=== PATIENT | male | born 1940 | race Caucasian/White ===

== ENCOUNTER 2020-04-15 08:46 | Outpatient (CLI) | payer MEDICARE, SELFPAY ==
[2020-04-15 09:33] LABS: Hemoglobin A1C 5.5 % (<5.7)
[2020-04-15 09:36] LABS: Albumin Level 4.3 g/dL (3.5-5.1); Alkaline Phosphatase 94 U/L (38-126); Anion Gap 9 mmol/L (8-16); Aspartate Amino Transferase 31 U/L (17-59); Bilirubin,Total 0.5 mg/dL (0.2-1.3); Blood Urea Nitrogen 26 mg/dL (9-20); Calcium 9.6 mg/dL (8.4-10.2); Carbon Dioxide 33 mmol/L (22-30); Chloride 103 mmol/L (98-107); Estimated Glomerular Filt Rate 49; Glucose 131 mg/dL (75-110); Potassium 4.2 mmol/L (3.4-5.0); Sodium 145 mmol/L (137-145)
[2020-04-15 09:39] LABS: Alanine Aminotransferase < 6 U/L (4-50)
== END 2020-04-15 08:47 | disposition home or self-care (01) ==
PROVIDERS: PCP Family Medicine; Visit Provider Family Medicine
DX: E11.9 Type 2 diabetes mellitus without complications (principal)
CPT/HCPCS: 36415; 80053; 83036

== ENCOUNTER 2020-05-17 11:21 | Outpatient (CLI) | payer MEDICARE, SELFPAY ==
[2020-05-17 12:10] LABS: Hematocrit 43.5 % (42.0-52.0); Hemoglobin 14.5 g/dL (14.0-18.0); Mean Corpuscular HGB Conc 33.3 g/dl (32-36); Mean Corpuscular Hemoglobin 32.2 pg (26-34); Mean Corpuscular Volume 96.7 fl (80-100); Mean Platelet Volume 9.8 fl (7.4-10.4); Platelet Count Result 172 k/mm3 (150-375); Red Cell Distribution Width 12.2 % (11.5-14.5); White Blood Count 9.5 K/mm3 (4.5-10.0)
[2020-05-17 12:16] LABS: Add Urine Microscopic? YES; Appearance Urine Clear (Clear); Bilirubin Urine Negative (Negative); Blood Urine Negative (Negative); Color Urine Yellow (Yellow); Glucose Urine UA Negative (Negative); Ketones Urine Negative (Negative); Leukocyte Esterase Ur Negative LEU/UL (NEGATIVE); Mucus Urine Rare /lpf; Nitrate Urine Negative (Negative); Protein Urine 1+ mg/dL (Negative); RBC Urine 0-2 /hpf (0-2); Specific Grav Ur 1.021 (1.001-1.035); Squamous Epithelial Cell Urine Rare /hpf (Few); Urobilinogen Urine Negative mg/dL (<2.0); WBC Urine 0-3 /hpf (0-3)
[2020-05-17 12:27] LABS: Alanine Aminotransferase 18 U/L (4-50); Albumin Level 4.2 g/dL (3.5-5.1); Alkaline Phosphatase 96 U/L (38-126); Anion Gap 6 mmol/L (8-16); Aspartate Amino Transferase 29 U/L (17-59); Bilirubin,Total 0.6 mg/dL (0.2-1.3); Blood Urea Nitrogen 28 mg/dL (9-20); Calcium 9.3 mg/dL (8.4-10.2); Carbon Dioxide 35 mmol/L (22-30); Chloride 101 mmol/L (98-107); Cholesterol 135 mg/dL (0-200); Estimated Glomerular Filt Rate 49; Glucose 122 mg/dL (75-110); HDL Direct 35 mg/dL; Potassium 3.7 mmol/L (3.4-5.0); Sodium 142 mmol/L (137-145); Triglycerides 182 mg/dL (<150)
[2020-05-17 12:32] LABS: Hemoglobin A1C 5.5 % (<5.7)
[2020-05-17 12:38] LABS: LDL Cholesterol Direct 60 mg/dL
[2020-05-17 12:51] LABS: Creatinine Urine 170.4 mg/dL
[2020-05-17 12:55] LABS: MALB Creatinine Ratio 6.7 mg/g (0-30); Microalbumin Urine Random 11.4 mg/L (0-16.7)
[2020-05-17 12:57] LABS: Thyroid Stimulating Hormone 0.739 uIU/mL (0.465-4.680)
== END 2020-05-17 11:22 | disposition home or self-care (01) ==
PROVIDERS: PCP Family Medicine; Visit Provider Family Medicine
DX: E78.5 Hyperlipidemia, unspecified (principal); E11.9 Type 2 diabetes mellitus without complications; I10 Essential (primary) hypertension; R53.83 Other fatigue
CPT/HCPCS: 36415; 80053; 80061; 81001; 82043; 83036; 84443; 85027

== ENCOUNTER 2020-10-29 11:00 | Outpatient (CLI) | payer MEDICARE, SELFPAY ==
[2020-10-29 11:47] LABS: Hemoglobin A1C 5.8 % (<5.7)
[2020-10-29 11:52] LABS: Albumin Level 4.3 g/dL (3.5-5.1); Alkaline Phosphatase 95 U/L (38-126); Anion Gap 9 mmol/L (8-16); Aspartate Amino Transferase 28 U/L (17-59); Bilirubin,Total 0.6 mg/dL (0.2-1.3); Blood Urea Nitrogen 25 mg/dL (9-20); Calcium 9.8 mg/dL (8.4-10.2); Carbon Dioxide 33 mmol/L (22-30); Chloride 101 mmol/L (98-107); Estimated Glomerular Filt Rate 49; Glucose 116 mg/dL (75-110); Potassium 4.1 mmol/L (3.4-5.0); Sodium 143 mmol/L (137-145)
[2020-10-29 13:31] LABS: Alanine Aminotransferase < 4 U/L (4-50)
== END 2020-10-29 11:01 | disposition home or self-care (01) ==
LOC: ANHLAB 11:03
PROVIDERS: PCP Family Medicine; Visit Provider Family Medicine
DX: E11.9 Type 2 diabetes mellitus without complications (principal)
CPT/HCPCS: 36415; 80053; 83036

== ENCOUNTER 2021-05-16 11:17 | Outpatient (CLI) | payer MEDICARE, SELFPAY ==
[2021-05-16 11:47] LABS: Hematocrit 41.3 % (42.0-52.0); Hemoglobin 13.4 g/dL (14.0-18.0); Mean Corpuscular HGB Conc 32.4 g/dl (32-36); Mean Corpuscular Hemoglobin 32.4 pg (26-34); Mean Corpuscular Volume 99.8 fl (80-100); Platelet Count Result 179 k/mm3 (150-375); Red Blood Count 4.14 M/mm3 (4.6-6.20); Red Cell Distribution Width 12.5 % (11.5-14.5); White Blood Count 9.8 K/mm3 (4.5-10.0)
[2021-05-16 11:55] LABS: Creatinine Urine 138.6 mg/dL
[2021-05-16 11:56] LABS: Add Urine Microscopic? YES; Appearance Urine Clear (Clear); Bilirubin Urine Negative (Negative); Blood Urine Negative (Negative); Color Urine Yellow (Yellow); Glucose Urine UA Negative (Negative); Ketones Urine Trace mg/dL (Negative); Leukocyte Esterase Ur Negative LEU/UL (NEGATIVE); Mucus Urine Rare /lpf; Nitrate Urine Negative (Negative); Protein Urine Negative (Negative); RBC Urine 0-2 /hpf (0-2); Specific Grav Ur 1.018 (1.001-1.035); Urobilinogen Urine Negative mg/dL (<2.0); WBC Urine 0-3 /hpf (0-3)
[2021-05-16 11:57] LABS: Hemoglobin A1C 5.8 % (<5.7)
[2021-05-16 11:59] LABS: Alanine Aminotransferase 12 U/L (4-50); Albumin Level 4.4 g/dL (3.5-5.1); Alkaline Phosphatase 109 U/L (38-126); Anion Gap 6 mmol/L (8-16); Aspartate Amino Transferase 29 U/L (17-59); Bilirubin,Total 0.6 mg/dL (0.2-1.3); Blood Urea Nitrogen 19 mg/dL (9-20); Calcium 9.3 mg/dL (8.4-10.2); Carbon Dioxide 31 mmol/L (22-30); Chloride 101 mmol/L (98-107); Cholesterol 153 mg/dL (0-200); Estimated Glomerular Filt Rate 53; Glucose 121 mg/dL (65-110); HDL Direct 39 mg/dL; Potassium 4.1 mmol/L (3.4-5.0); Sodium 138 mmol/L (137-145); Triglycerides 189 mg/dL (<150)
[2021-05-16 12:00] LABS: MALB Creatinine Ratio 6.8 mg/g (0-30); Microalbumin Urine Random 9.4 mg/L (0-16.7)
[2021-05-16 12:10] LABS: LDL Cholesterol Direct 75 mg/dL
[2021-05-16 12:29] LABS: Thyroid Stimulating Hormone 0.933 uIU/mL (0.465-4.680)
== END 2021-05-16 11:18 | disposition home or self-care (01) ==
PROVIDERS: PCP Family Medicine; Visit Provider Family Medicine
DX: E78.5 Hyperlipidemia, unspecified (principal); I10 Essential (primary) hypertension; E11.9 Type 2 diabetes mellitus without complications
CPT/HCPCS: 36415; 80053; 80061; 81001; 82043; 83036; 84443; 85027

== ENCOUNTER 2021-11-21 11:01 | Outpatient (CLI) | payer MEDICARE, SELFPAY ==
[2021-11-21 12:14] LABS: Alanine Aminotransferase 7 U/L (6-50); Albumin Level 4.2 g/dL (3.5-5.1); Alkaline Phosphatase 103 U/L (38-126); Anion Gap 9 mmol/L (8-16); Aspartate Amino Transferase 26 U/L (17-59); Bilirubin,Total 0.7 mg/dL (0.2-1.3); Blood Urea Nitrogen 20 mg/dL (9-20); Calcium 8.9 mg/dL (8.4-10.2); Carbon Dioxide 30 mmol/L (22-30); Chloride 103 mmol/L (98-107); Estimated Glomerular Filt Rate 53; Glucose 109 mg/dL (65-110); Potassium 3.9 mmol/L (3.4-5.0); Sodium 142 mmol/L (137-145)
[2021-11-21 12:24] LABS: Hemoglobin A1C 5.7 % (<5.7)
== END 2021-11-21 11:02 | disposition home or self-care (01) ==
LOC: ANHLAB 11:05
PROVIDERS: PCP Family Medicine; Visit Provider Family Medicine
DX: E11.9 Type 2 diabetes mellitus without complications (principal)
CPT/HCPCS: 36415; 80053; 83036

== ENCOUNTER 2022-05-16 09:36 | Outpatient (CLI) | payer MEDICARE, SELFPAY ==
[2022-05-16 10:05] LABS: Hemoglobin 13.1 g/dL (14.0-18.0); Mean Corpuscular Hemoglobin 31.3 pg (26-34); Mean Corpuscular Volume 98.1 fl (80-100); Mean Platelet Volume 10.2 fl (7.4-10.4); Platelet Count Result 204 k/mm3 (150-375); Red Blood Count 4.18 M/mm3 (4.6-6.20); Red Cell Distribution Width 12.5 % (11.5-14.5)
[2022-05-16 10:17] LABS: Add Urine Microscopic? NO; Appearance Urine Clear (Clear); Bilirubin Urine Negative (Negative); Blood Urine Negative (Negative); Color Urine Light Yellow (Yellow); Glucose Urine UA Negative (Negative); Ketones Urine Negative (Negative); Leukocyte Esterase Ur Negative LEU/UL (NEGATIVE); Nitrate Urine Negative (Negative); Protein Urine Negative (Negative); Specific Grav Ur 1.015 (1.001-1.035); Urobilinogen Urine 0.2 mg/dL (<2.0)
[2022-05-16 10:19] LABS: Alanine Aminotransferase 8 U/L (6-50); Albumin Level 4.5 g/dL (3.5-5.1); Alkaline Phosphatase 96 U/L (38-126); Anion Gap 6 mmol/L (8-16); Aspartate Amino Transferase 28 U/L (17-59); Bilirubin,Total 0.6 mg/dL (0.2-1.3); Blood Urea Nitrogen 22 mg/dL (9-20); Calcium 9.1 mg/dL (8.4-10.2); Carbon Dioxide 33 mmol/L (22-30); Chloride 101 mmol/L (98-107); Cholesterol 143 mg/dL (0-200); Estimated Glomerular Filt Rate 45; Glucose 113 mg/dL (65-110); HDL Direct 35 mg/dL; Potassium 3.7 mmol/L (3.4-5.0); Sodium 140 mmol/L (137-145); Triglycerides 190 mg/dL (<150)
[2022-05-16 10:29] LABS: LDL Cholesterol Direct 63 mg/dL
[2022-05-16 10:39] LABS: Creatinine Urine 132.2 mg/dL; Hemoglobin A1C 5.9 % (<5.7)
[2022-05-16 10:43] LABS: MALB Creatinine Ratio 13.1 mg/g (0-30); Microalbumin Urine Random 17.3 mg/L (0-16.7)
== END 2022-05-16 09:37 | disposition home or self-care (01) ==
PROVIDERS: PCP Family Medicine; Visit Provider Family Medicine
DX: E11.9 Type 2 diabetes mellitus without complications (principal); E78.5 Hyperlipidemia, unspecified; I10 Essential (primary) hypertension
CPT/HCPCS: 36415; 80053; 80061; 81003; 82043; 83036; 84443; 85027

== ENCOUNTER 2022-12-04 09:39 | Outpatient (CLI) | payer MEDICARE, SELFPAY ==
[2022-12-04 10:08] LABS: Basophils Absolute Auto 0.1 K/mm3 (0.0-0.1); Basophils Percent Auto 0.6 % (0.2-1.2); Eosinophils Absolute Auto 0.2 K/mm3 (0-0.3); Eosinophils Percent Auto 2.5 % (0-4.4); Hematocrit 37.8 % (42.0-52.0); Hemoglobin 12.2 g/dL (14.0-18.0); Immature Granulocyte Absolute 0.04 K/mm3 (0.00-0.031); Immature Granulocyte Percent A 0.4 % (0-0.5); Lymphocytes Absolute Auto 2.26 K/mm3 (0.9-3.2); Mean Corpuscular HGB Conc 32.3 g/dl (32-36); Mean Corpuscular Hemoglobin 32.2 pg (26-34); Mean Corpuscular Volume 99.7 fl (80-100); Mean Platelet Volume 9.7 fl (7.4-10.4); Monocytes Percent Auto 10.9 % (2.6-8.5); Neutrophils Absolute Auto 5.5 K/mm3 (1.3-6.7); Neutrophils Percent Auto 60.6 % (45.5-73.1); Platelet Count Result 190 k/mm3 (150-375); Red Blood Count 3.79 M/mm3 (4.6-6.20); Red Cell Distribution Width 12.2 % (11.5-14.5)
[2022-12-04 10:18] LABS: Alanine Aminotransferase 13 U/L (6-50); Alkaline Phosphatase 91 U/L (38-126); Anion Gap 3 mmol/L (8-16); Aspartate Amino Transferase 32 U/L (17-59); Bilirubin,Total 0.6 mg/dL (0.2-1.3); Blood Urea Nitrogen 31 mg/dL (9-20); Carbon Dioxide 34 mmol/L (22-30); Chloride 101 mmol/L (98-107); Estimated Glomerular Filt Rate 45; Glucose 112 mg/dL (65-110); Potassium 3.7 mmol/L (3.4-5.0); Sodium 138 mmol/L (137-145)
[2022-12-04 10:39] LABS: Hemoglobin A1C 5.8 % (<5.7)
== END 2022-12-04 09:40 | disposition home or self-care (01) ==
PROVIDERS: PCP Family Medicine; Visit Provider Family Medicine
DX: D64.9 Anemia, unspecified (principal); E11.9 Type 2 diabetes mellitus without complications; I10 Essential (primary) hypertension
CPT/HCPCS: 36415; 80053; 83036; 85025

== ENCOUNTER 2023-06-21 12:48 | Outpatient (CLI) | payer MEDICARE, SELFPAY | END 2023-06-21 12:49 | disposition home or self-care (01) | LOC: ANHAUDIO 12:49 | PROVIDERS: PCP Physician Assistant; Visit Provider Physician Assistant | DX: H91.90 Unspecified hearing loss, unspecified ear (principal) | CPT/HCPCS: 99199 ==

== ENCOUNTER 2023-08-02 12:55 | Outpatient (CLI) | payer MEDICARE, SELFPAY | END 2023-08-02 12:56 | disposition home or self-care (01) | LOC: ANHAUDIO 12:55 | PROVIDERS: PCP Physician Assistant; Visit Provider Physician Assistant | DX: H90.3 Sensorineural hearing loss, bilateral (principal) | CPT/HCPCS: 92557; 92567 ==

== ENCOUNTER 2023-09-20 11:00 | Outpatient (RCR) | payer MEDICARE, SELFPAY | END 2023-09-20 23:59 | disposition home or self-care (01) | LOC: ANHAUDIO 11:00 | PROVIDERS: PCP Physician Assistant; Visit Provider Physician Assistant | DX: Z46.1 Encounter for fitting and adjustment of hearing aid (principal) | CPT/HCPCS: 99199; V5261 ==

== ENCOUNTER 2023-10-26 09:41 | Outpatient (CLI) | payer MEDICARE, SELFPAY ==
[2023-10-26 10:33] LABS: Hematocrit 38.7 % (42.0-52.0); Hemoglobin 12.1 g/dL (14.0-18.0); Mean Corpuscular HGB Conc 31.3 g/dl (32-36); Mean Corpuscular Hemoglobin 31.3 pg (26-34); Mean Platelet Volume 10.3 fl (7.4-10.4); Platelet Count Result 178 k/mm3 (150-375); Red Blood Count 3.87 M/mm3 (4.6-6.20); Red Cell Distribution Width 12.6 % (11.5-14.5); White Blood Count 8.2 K/mm3 (4.5-10.0)
[2023-10-26 10:35] LABS: Appearance Urine Clear (Clear); Bilirubin Urine Negative (Negative); Blood Urine Negative (Negative); Color Urine Yellow (Yellow); Glucose Urine UA Negative (Negative); Ketones Urine Negative (Negative); Leukocyte Esterase Ur Negative LEU/UL (Negative); Nitrate Urine Negative (Negative); Protein Urine Negative (Negative); Specific Grav Ur 1.018 (1.001-1.035); Urobilinogen Urine 0.2 mg/dL (<2.0); pH Urine 7.5 (5.0-9.0)
[2023-10-26 10:51] LABS: Add Urine Microscopic? NO
[2023-10-26 10:53] LABS: Albumin Level 4.1 g/dL (3.5-5.1); Alkaline Phosphatase 83 U/L (38-126); Anion Gap 5 mmol/L (4-12); Aspartate Amino Transferase 25 U/L (17-59); Bilirubin,Total 0.7 mg/dL (0.2-1.3); Blood Urea Nitrogen 31 mg/dL (9-20); Calcium 9.1 mg/dL (8.4-10.2); Carbon Dioxide 33 mmol/L (22-30); Chloride 104 mmol/L (98-107); Cholesterol 130 mg/dL (0-200); Estimated Glomerular Filt Rate 41; Glucose 107 mg/dL (65-110); HDL Direct 41 mg/dL; Sodium 142 mmol/L (137-145); Triglycerides 125 mg/dL (<150)
[2023-10-26 11:05] LABS: LDL Cholesterol Direct 75 mg/dL
[2023-10-26 11:12] LABS: Hemoglobin A1C 5.8 % (<5.7)
[2023-10-26 11:15] LABS: Alanine Aminotransferase < 6 U/L (6-50)
[2023-10-26 11:19] LABS: Creatinine Urine 92.1 mg/dL
[2023-10-26 11:23] LABS: Thyroid Stimulating Hormone 0.891 uIU/mL (0.465-4.680)
[2023-10-26 11:24] LABS: Microalbumin Urine Random 10.1 mg/L (0-16.7)
== END 2023-10-26 09:42 | disposition home or self-care (01) ==
PROVIDERS: PCP Family Medicine; Visit Provider Family Medicine
DX: I10 Essential (primary) hypertension (principal); E78.5 Hyperlipidemia, unspecified; E11.9 Type 2 diabetes mellitus without complications
CPT/HCPCS: 36415; 80053; 80061; 81003; 82043; 83036; 84443; 85027

== ENCOUNTER 2024-06-05 09:59 | Outpatient (CLI) | payer MEDICARE, SELFPAY ==
[2024-06-05 11:08] LABS: Basophils Percent Auto 0.5 % (0.2-1.2); Eosinophils Absolute Auto 0.1 K/mm3 (0-0.3); Eosinophils Percent Auto 1.7 % (0-4.4); Hematocrit 38.2 % (42.0-52.0); Hemoglobin 12.1 g/dL (14.0-18.0); Immature Granulocyte Absolute 0.03 K/mm3 (0.00-0.031); Immature Granulocyte Percent A 0.4 % (0-0.5); Lymphocytes Absolute Auto 1.82 K/mm3 (0.9-3.2); Lymphocytes Percent Auto 22.4 % (18.3-44.2); Mean Corpuscular HGB Conc 31.7 g/dl (32-36); Mean Corpuscular Hemoglobin 31.8 pg (26-34); Mean Corpuscular Volume 100.3 fl (80-100); Monocytes Absolute Auto 0.8 K/mm3 (0.1-0.6); Monocytes Percent Auto 10.1 % (2.6-8.5); Neutrophils Absolute Auto 5.3 K/mm3 (1.3-6.7); Neutrophils Percent Auto 64.9 % (45.5-73.1); Platelet Count Result 170 k/mm3 (150-375); Red Blood Count 3.81 M/mm3 (4.6-6.20); White Blood Count 8.1 K/mm3 (4.5-10.0)
[2024-06-05 11:21] LABS: Iron 135 ug/dL (49-181)
[2024-06-05 11:26] LABS: Albumin Level 4.1 g/dL (3.5-5.1); Alkaline Phosphatase 101 U/L (38-126); Anion Gap 4 mmol/L (4-12); Aspartate Amino Transferase 29 U/L (17-59); Bilirubin,Total 0.7 mg/dL (0.2-1.3); Blood Urea Nitrogen 30 mg/dL (9-20); Calcium 9.2 mg/dL (8.4-10.2); Carbon Dioxide 33 mmol/L (22-30); Chloride 103 mmol/L (98-107); Estimated Glomerular Filt Rate 44; Glucose 106 mg/dL (65-110); Potassium 4.1 mmol/L (3.4-5.0); Sodium 140 mmol/L (137-145)
[2024-06-05 11:31] LABS: Alanine Aminotransferase < 6 U/L (6-50)
[2024-06-05 11:32] LABS: Percent Iron Saturation 41 % (20-50)
[2024-06-05 11:39] LABS: Hemoglobin A1C 5.9 % (<5.7)
[2024-06-05 12:35] LABS: Folic Acid > 20.0 ng/mL (2.76->20)
== END 2024-06-05 10:00 | disposition home or self-care (01) ==
LOC: ANHLAB 10:05
PROVIDERS: PCP Physician Assistant; Visit Provider Physician Assistant
DX: E11.9 Type 2 diabetes mellitus without complications (principal); I10 Essential (primary) hypertension; E78.5 Hyperlipidemia, unspecified; D64.9 Anemia, unspecified; H61.23 Impacted cerumen, bilateral
CPT/HCPCS: 36415; 80053; 82607; 82728; 82746; 83036; 83540; 83550; 85025

== ENCOUNTER 2024-08-05 09:39 | Outpatient (CLI) | payer MEDICARE, SELFPAY ==
[2024-08-05 10:05] LABS: Basophils Absolute Auto 0.1 K/mm3 (0.0-0.1); Basophils Percent Auto 0.7 % (0.2-1.2); Eosinophils Absolute Auto 0.2 K/mm3 (0-0.3); Eosinophils Percent Auto 2.2 % (0-4.4); Hematocrit 36.5 % (42.0-52.0); Immature Granulocyte Absolute 0.02 K/mm3 (0.00-0.031); Immature Granulocyte Percent A 0.2 % (0-0.5); Lymphocytes Absolute Auto 2.24 K/mm3 (0.9-3.2); Lymphocytes Percent Auto 26.2 % (18.3-44.2); Mean Corpuscular HGB Conc 32.9 g/dl (32-36); Mean Corpuscular Hemoglobin 32.7 pg (26-34); Mean Corpuscular Volume 99.5 fl (80-100); Mean Platelet Volume 9.9 fl (7.4-10.4); Monocytes Percent Auto 11.6 % (2.6-8.5); Neutrophils Absolute Auto 5.1 K/mm3 (1.3-6.7); Neutrophils Percent Auto 59.1 % (45.5-73.1); Platelet Count Result 173 k/mm3 (150-375); Red Blood Count 3.67 M/mm3 (4.6-6.20); Red Cell Distribution Width 12.3 % (11.5-14.5); White Blood Count 8.6 K/mm3 (4.5-10.0)
[2024-08-05 10:07] LABS: Add Urine Microscopic? NO; Appearance Urine Clear (Clear); Bilirubin Urine Negative (Negative); Blood Urine Negative (Negative); Color Urine Yellow (Yellow); Glucose Urine UA Negative (Negative); Ketones Urine Negative (Negative); Leukocyte Esterase Ur Negative LEU/UL (Negative); Nitrate Urine Negative (Negative); Protein Urine Negative (Negative); Specific Grav Ur 1.018 (1.001-1.035); Urobilinogen Urine 0.2 mg/dL (<2.0); pH Urine 6.5 (5.0-9.0)
[2024-08-05 10:17] LABS: Albumin Level 4.2 g/dL (3.5-5.1); Anion Gap 8 mmol/L (4-12); Blood Urea Nitrogen 38 mg/dL (9-20); Calcium 9.2 mg/dL (8.4-10.2); Carbon Dioxide 30 mmol/L (22-30); Chloride 103 mmol/L (98-107); Estimated Glomerular Filt Rate 44; Glucose 112 mg/dL (65-110); Phosphorus 3.8 mg/dL (2.5-4.5); Potassium 4.1 mmol/L (3.4-5.0); Sodium 141 mmol/L (137-145)
--- OUTSIDE RECORDS SUMMARY | 2024-08-05 10:39 | XMS_ITS | Encounter Summary ---
Author Organization [facility] Address [address] [place] [address] Care Team Providers Care Cleaner Touch Up Worker Name Role Phone Chacorta Bradley MD Primary Care Provider [phone] Elisha Ness Unavailable [phone] Elisha Ness Primary Care Provider + [phone] Encounter Details Date Type Department Care Team (Late st Contact Info) Description 01/15/2018 Abstract [facility] CONVERSION [address] [place] [address] , Caleb Beltre MD Social History Tobacco Use Types Packs/Day Years Used Date Smoking Tobacco: Never Assessed Sex and Gender Information Value Date Recorded Sex Assigned at Not on file Legal Sex Male 7:50 PM CDT Gender Identity Not on file Sexual Orientation Not on file documented as of this encounter Plan of Treatment Not on file documented as of this encounter Visit Diagnoses Not on filedocumented in this encounter Additional Health Concerns Infection Onset Date Last Indicated Resolved Time COVID-19 Rule Out 10/20/2019 10/20/2019 10/21/2019 1:54 PM CDT documented as of this encounter Care Teams Cleaner Touch Up Worker Relationship Specialty Start Date End Date Chacorta Bradley MD [address] [facility] [address] [place] [address] PCP - General FAMILY PRACTICE 04/17/19 08/06/23 Elisha Ness PA [address] [place] [address] PCP - General PHYSICIAN RENTAL CAR FERRY DRIVER 08/07/23 Elisha Ness PA [address] [address] PHYSICIAN RENTAL CAR FERRY DRIVER 08/07/23 08/07/23 documented as of this encounter
--- OUTSIDE RECORDS SUMMARY | 2024-08-05 10:39 | XMS_ITS | Encounter Summary ---
Author Organization [facility] Address [facility] [place] [address] Care Team Providers Care Song Lyricist Name Role Phone Chacorta Bradley MD Primary Care Provider [phone] Elisha Ness Unavailable [phone] Elisha Ness Primary Care Provider + [phone] Encounter Details Date Type Department Care Team (Latest Contact Info) Description 04/02/2018 Abstract [facility] , Caleb Beltre MD Social History Tobacco [...] documented as of this encounter Care Teams Song Lyricist Relationship Specialty Start Date End Date Chacorta Bradley MD [address] [place] [address] PCP - General FAMILY PRACTICE 04/17/19 08/06/23 Elisha Ness PA [address] [place] [address] PCP - General PHYSICIAN WELLFIELD TECHNICIAN 08/07/23 Elisha Ness PA [address] [facility] [address] [facility] [address] [place] [address] PHYSICIAN WELLFIELD TECHNICIAN 08/07/23 08/07/23 documented as of this encounter
--- OUTSIDE RECORDS SUMMARY | 2024-08-05 10:39 | XMS_ITS | Clinical Summary ---
Author Organization [facility] Address [facility] [place] [address] Care Team Providers Care Collateral Clerk Name Role Phone Elisha Ness Primary Care Provider [phone] Allergies No known active allergies Medications amlodipine 2.5 MG tablet Take 2.5 mg by mouth daily. 05/15/2019 Active topiramate 25 MG tablet 75 mg nightly. 06/04/2019 Active metFORMIN 500 MG tablet Take 1,000 mg by mouth daily with breakfast. 02/13/2011 Active Losartan Potassium-HCTZ 100-12.5 MG Tab Take 1 tablet by mouth daily. 02/13/2011 Active influenza vaccine split high-dose (FLUZONE HIGH-DOSE) 0.5 ML injection Inject 0.5 mLs into the muscle. 03/03/2014 Active carbidopa-levod opa 25-100 MG tablet Take 1 tablet by mouth 3 (three) times daily. Active Multiple Vitamins-Minera ls (EYE-VITES OR) Active metoprolol succinate ER 50 MG 24 hr tablet Take 100 mg by mouth daily. Active Multiple Vitamins-Minera ls (MULTIVITAMIN ADULT OR) Active atorvastatin 10 MG tablet Take 10 mg by mouth nightly at bedtime. Active donepezil 10 MG Tab Take 10 mg by mouth nightly at bedtime. 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 05/13/2021 Pain of left great toe 03/03/2014 Essential hypertension 07/08/2013 Macular degeneration of both eyes 04/14/2013 Overview (08/11/2019): Description: dry, age related; stable 03/2013 Gout 03/04/2013 Abdominal pain 05/22/2012 Foot pain 05/07/2012 Callus 04/29/2012 Overview (08/11/2019): Annotation - [id number]: 07-29-2010 progress note, [facility] Diabetic peripheral neuropathy ([facility]) 04/29/2012 Overview (08/11/2019): Annotation - [id number]: 07-29-2010 progress note, [facility] Allergic rhinitis 02/27/2012 Benign familial tremor 02/27/2012 Hyperlipidemia 02/27/2012 Type 2 diabetes mellitus ([facility]) 02/26 Resolved Problems Problem Noted Date Diagnosed Date Resolved Date Encounter for preventive health examination 11/28/2011 02/06/2020 Social History Tobacco Use Types Packs/Day Years Used Date Smoking Tobacco: Never Smokeless Tobacco: Former Alcohol Use Standard Drinks/Week Comments Never 0 (1 standard drink = 0.6 oz pur e alcohol) AUDIT-C Answer Date Recorded Frequency of Alcohol Consumption Never 08/14/2019 Average Number of Drinks Not on file 020 Frequency of Binge Drinking Not on file 07/26 Sex and Gender Information Value Date Recorded Sex Assigned at Not on file Legal Sex Male 7:50 PM CDT Gender Identity Not on file Sexual Orientation Not on file Last Filed Vital Signs Vital Sign Reading Time Taken Comments Blood Pressure 121/75 10/22/2019 11:28 AM CDT Pulse 61 10/22/2019 11:28 AM CDT Temperature 35.8 C (96.5 F) 10/22/2019 11:03 AM CDT Respiratory Rate 16 10/22/2019 11:28 AM CDT Oxygen Saturation 98% 10/22/2019 11:28 AM CDT Inhaled Oxygen Concentration - - Weight 77.1 kg (170 lb) 10/22/2019 9:36 AM CDT Height 175.3 cm (5' 9 ) 10/22/2019 9:36 AM CDT Body Mass Index 25.1 10/22/2019 9:36 AM CDT Plan of Treatment Health Maintenance Due Date Last Done Comments Diabetes: Retinopathy Eye Exam 09/26/1958 Annual Medicare Wellness Visit 09/26/2004 Zoster Vaccines (2 of 3) 04/23/2010 02/26/2010 RSV Immunization or 60+ Years (1 - 1-dose 75+ series) 09/26/2014 Hemoglobin A1C 06/24/2020 12/23/2019, 03/0 08/2019, 03/20/2014, Additional history exists Lipid Panel 07/29/2020 07/30/2019 DTaP, Tdap and Td Vaccines (2 - Td or Tdap) 08/27/2021 08/28/2011 COVID-19 Vaccine ( - season) 2024 Influenza Adult (#1) 2024 02/06/2019, 02/12/2018, 02/13/2017, Additional history exists Kidney Health Evaluation 08/06/2024 08/07/2023 Pneumococcal Vaccine: 65+ Years Completed 12/10/2014, 02/26/2011 Meningococcal B Vaccine Aged Out No l onger eligible based on patient's age to complete this topic Meningococcal Vaccine Aged Out No panfilo shira eligible based on patient's age to complete this topic RSV Immunizations Under 20 Months Aged Out No longer eligible based on patient's age to complete this topic Medical Devices Implanted Type Area Braker Passenger Train Device Identifier Shelf Expiration Date Model / Serial / Lot Knee Procedures Procedure Name Priority Date/Time Associated Diagnosis Comments HEMOGLOBIN, GLYCOSYLATED Routine 12/23/2019 11:04 AM CDT Diabetes mellitus LIPID PANEL Routine 07/30/2019 10:20 AM QUALITY ASSURANCE ADVISOR Diabetes mellitus Mixed hyperlipidemia Benign hypertension Fatigue from Last 3 Months or Most Recently Relevant to Health Maintenance Results * HEMOGLOBIN, GLYCOSYLATED (12/23/2019 11:04 AM CDT) HGB A1C 5.5 <5.7 % 12/23/2019 1:14 PM CDT [facility] Comment: INCREASED RISK OF DIABETES <5.7% NON-DIABETES 5.7-6.4% INCREASED RISK FOR FUTURE DIABETES > OR = 6.5 CONSISTENT WITH DIABETES STANDARDS OF MEDICAL CARE IN DIABETES-2010 DIABETES CARE, 33(SUPP 1): S1-S61,2009 12/23/2019 11:0 4 AM CDT Chacorta Bradley MD LABORATORY Final Result [facility] [address] [place] [address], [place] [phone] * (ABNORMAL) LIPID PANEL (07/30/2019 10:20 AM QUALITY ASSURANCE ADVISOR) CHOLESTEROL 141 <200.0 MG/DL 07/30/2019 11:13 AM [facility] TRIGLYCERIDES 287(H) <150 MG/DL 07/30/2019 11:13 AM [facility] HDL 31(L) >40.0 MG/DL 07/30/2019 11:13 AM [facility] LDL (CALCULATED) 53 <100 MG/DL 07/30/2019 11:13 AM [facility] NON HDL CHOLESTEROL 110 <130 MG/DL 07/30/2019 11:13 AM [facility] CHOL/HDL RATIO 4.5 0.0 - 4.5 07/30/2019 11:13 AM [facility] VLDL CALCULATION 57(H) 5 - 55 MG/DL 07/30/2019 11:13 AM [facility] LIPID INTERPRETATION 07/30/2019 11:13 AM [facility] Comment: NIH CONCENSUS REPORT RECOMMENDATIONS: ADULT CHILD LOW RISK: CHOLESTEROL <200 <170 TRIGLYCERIDE <150 --- HDL >=60 --- LDL <100 <110 BORDERLINE: CHOLESTEROL 200-239 170-199 TRIGLYCERIDE 150-199 --- HDL 40-59 --- LDL 100-159 110-129 HIGH RISK: CHOLESTEROL >=240 >=200 TRIGLYCERIDE >=200 --- HDL <40 --- LDL >=160 >=130 07/30/2019 10:2 0 AM QUALITY ASSURANCE ADVISOR Chacorta Bradley MD LABORATORY Final Result [facility] [address] [place] [address], from Last 3 Months or Most Recently Relevant to [place] [address] [employer] Care Teams Collateral Clerk Relationship Specialty Start Date End Date Elisha Ness PA [address] [facility] [address] [place] [address] PCP - General PHYSICIAN COFOUNDER 08/07/23
--- OUTSIDE RECORDS SUMMARY | 2024-08-05 10:39 | XMS_ITS | Encounter Summary ---
Author Organization [facility] Address [address] [place] [address] Care Team Providers Care Psychiatric Social Worker Supervisor Name Role Phone Chacorta Bradley MD Primary Care Provider [phone] Elisha Ness Unavailable [phone] Elisha Ness Primary Care Provider + [phone] Encounter Details Date Type Department Care Team (Late st Contact Info) Description 11/23/2017 Abstract [facility] CONVERSION [address] [place] [address] , Caleb Beltre MD Social History Tobacco [...] documented as of this encounter Care Teams Psychiatric Social Worker Supervisor Relationship Specialty Start Date End Date Chacorta Bradley MD [address] [facility] [address] [place] [address] PCP - General FAMILY PRACTICE 04/17/19 08/06/23 Elisha Ness PA [address] [place] [address] PCP - General PHYSICIAN FLOW WORKER 08/07/23 Elisha Ness PA [address] [address] PHYSICIAN FLOW WORKER 08/07/23 08/07/23 documented as of this encounter
--- OUTSIDE RECORDS SUMMARY | 2024-08-05 10:39 | XMS_ITS | Clinical Summary ---
Author Organization [facility] Address [address] [place] [address] Phone Care Team Providers Care District Sales Representative Name Role Phone Chacorta Bradley MD Primary Care Provider [phone] Allergies No known active allergies Medications Medication Sig Dispensed Refills Start Date End Date Status topiramate (TOPAMAX) 25 MG tablet Take 25 mg by mouth every night Active aspirin (ST ELMER) 81 MG EC tablet Take 81 mg by mouth 1 (one) time each day Active amLODIPine (NORVASC) 2.5 MG tablet Take 2.5 mg by mouth every night Active losartan-hydroCHLOROth iazide (HYZAAR) 100-12.5 MG per tablet Take 1 tablet by mouth 1 (one) time each day Active metFORMIN (FORTAMET) 500 MG 24 hr tablet Take 1,000 mg by mouth 1 (one) time each day in the morning Active atorvastatin (LIPITOR) 10 MG tablet Take 10 mg by mouth 1 (one) time each day Active Lutein 10 MG tablet Take by mouth 2 (two) times a day UNKNOWN DOSE Active Multiple Vitamin (multivitamin) tablet Take 1 tablet by mouth 1 (one) time each day Active carbidopa-levodopa (SINEMET) 25-100 MG per tablet Take 3 tablets by mouth 3 (three) times a day Active memantine (NAMENDA) 10 MG tablet Take 10 mg by mouth 1 (one) time each day Active metoprolol tartrate (LOPRESSOR) 50 MG tablet Take 100 mg by mouth daily Active Cholecalciferol (Vitamin D) 25 MCG (1000 UT) tablet Take 1,000 Units by mouth daily Active donepezil (ARICEPT) 10 MG tablet Take 10 mg by mouth every night Active Active Problems Problem Noted Date Diagnosed Date Essential (primary) hypertension 09/14/2020 Diabetes mellitus without me ntion of complication, type II or unspecified type, not stated as uncontrolled 09/14/2020 Stage 3a chronic kidney disease 09/08/2020 Resolved Problems Problem Noted Date Diagnosed Date Resolved Date Parkinson's disease 09/14/2020 08/17/19 Social History Tobacco Use Types Packs/Day Years Used Date Smoking Tobacco: Never Smokeless Tobacco: Never Tobacco Cessation:Counseling Given: Not Answered Alcohol Use Standard Drinks/Week Comments Never 0 (1 standard drink = 0.6 oz pur e alcohol) AUDIT-C Answer Date Recorded Q1: How often do you have a drink containing alc ohol? Never 09/08/2020 Average Number of Drinks Not on file 021 Frequency of Binge Drinking Not on file 08/26 Sex and Gender Information Value Date Recorded Sex Assigned at Not on file Gender Identity Not on file Sexual Orientation Not on file Last Filed Vital Signs Vital Sign Reading Time Taken Comments Blood Pressure 126/78 08/14/2023 2:04 PM CDT Pulse 55 08/14/2023 2:04 PM CDT Temperature - - Respiratory Rate - - Oxygen Saturation - - Inhaled Oxygen Concentration - - Weight 70.8 kg (156 lb) 08/14/2023 2:04 PM CDT Height 175.3 cm (5' 9 ) 08/14/2023 2:04 PM CDT Body Mass Index 23.04 08/14/2023 2:04 PM CDT Plan of Treatment Upcoming Encounters Date Type Department Care Team (Late st Contact Info) Description 08/12/2024 1:00 PM CDT Office Visit [facility] [address] [facility] [place], [place] [id number] Smith Kilgore MD [address] [place] [address] Health Maintenance Due Date Last Done Comments Pneumococcal PPSV23/PCV13 65 + Years / High and Highest Risk (1 of 4 - PCV) 09/26/1946 Diabetic Foot Exam 09/26/1949 Ophthalmology Exam 09/26/1949 Influenza Vaccine (#1) 2024 Care Teams District Sales Representative Relationship Specialty Start Date End Date Chacorta Bradley MD [address] [facility] [address] [place] [address] PCP - General Internal Medicine 08/16/21
--- OUTSIDE RECORDS SUMMARY | 2024-08-05 10:39 | XMS_ITS | Encounter Summary ---
Author Organization [facility] Address [address] [place] [address] Care Team Providers Care Candle Maker Name Role Phone Chacorta Bradley MD Primary Care Provider [phone] Elisha Ness Unavailable [phone] Elisha Ness Primary Care Provider [phone] Encounter Details Date Type Department Care Team (Late st Contact Info) Description 10/13/2019 Prep for Procedure [facility] [address] [place], [place] [id number] Declan Ulloa MD [address] [address] Social History Tobacco Use Types Packs/Day Years [...] on file documented as of this encounter Results * PRE-SURGICAL/PRE-PROCEDURE CORONAVIRUS (COVID 19) (10/20/2019 9:56 AM CDT) Pathologist [facility] CORONAVIRUS SARS COV 2 PCR (RESP) NOT DETECTED NOT DETECTED 10/21/2019 1:54 PM CDT [facility] Comment: A Not Detected (negative) test result for this test means that SARS- CoV-2 RNA was not present in the specimen above the limit of detection. A negative result does not rule out the possibility of COVID-19 and should not be used as the sole basis for treatment or patient management decisions. If COVID-19 is still suspected, based on exposure history together with other clinical findings, re-testing should be considered in consultation with public health authorities. Laboratory test results should always be considered in the context of clinical observations and epidemiological data in making a final diagnosis and patient management decisions. Please review the Fact Sheets and FDA authorized labeling available for health care providers and patients using the following websites: [email or web address]/fact- sheet.html [email or web address]/home/Covid-[email or web address]/Patients/ [facility]/fact-sheet.html This test has been authorized by the FDA under an Emergency Use Authorization (EUA) for use by authorized laboratories. Due to the current public health emergency, [facility] is receiving a high volume of samples from a wide variety of swabs and media for COVID-19 testing. In order to serve patients during this public health crisis, samples from appropriate clinical sources are being tested. Negative test results derived from specimens received in non-commercially manufactured viral collection and transport media, or in media and sample collection kits not yet authorized by FDA for COVID-19 testing should be cautiously evaluated and the patient potentially subjected to extra precautions such as additional clinical monitoring, including collection of an additional specimen. Methodology: Nucleic Acid Amplification Test (NAAT) includes PCR or TMA Additional information about COVID-19 can be found at the [facility] website: [email or web address]. [facility] [address] [place] [address] Director: GIORGI GUERRA DO,MPH NASOPHARYNGEAL SWAB / Unknown 10/20/2019 9:56 AM CDT us Declan Ulloa MD MICROBIOLOGY - GENERAL ORDERABLE S Final Result [facility] [address] [place] [address], documented in this encounter Visit Diagnoses Diagnosis Pre-op testing- Primary Preoperative examination, unspecified documented in this encounter Additional Health Concerns Infection Onset Date Last Indicated Resolved Time COVID-19 Rule Out 10/20/2019 10/20/2019 10/21/2019 1:54 PM CDT documented as of this encounter Care Teams Candle Maker Relationship Specialty Start Date End Date Chacorta Bradley MD [address] [place] [address] PCP - General FAMILY PRACTICE 04/17/19 08/06/23 Elisha Ness PA [address] [facility] [address] [place] [address] PCP - General PHYSICIAN GASOLINE ENGINE ASSEMBLER 08/07/23 Elisha Ness PA [address] [facility] [address] [place] [address] PHYSICIAN GASOLINE ENGINE ASSEMBLER 08/07/23 08/07/23 documented as of this encounter
[2024-08-05 10:48] LABS: MALB Creatinine Ratio 10.2 mg/g (0-30); Microalbumin Urine Random 9.8 mg/L (0-16.7)
== END 2024-08-05 09:40 | disposition home or self-care (01) ==
LOC: ANHLAB 09:41
PROVIDERS: PCP Family Medicine; Visit Provider Internal Medicine Nephrology
DX: I12.9 Hypertensive chronic kidney disease with stage 1 through stage 4 chronic kidney disease, or unspecified chronic kidney disease (principal); N18.31 Chronic kidney disease, stage 3a
CPT/HCPCS: 36415; 80069; 81003; 82043; 85025

== ENCOUNTER 2024-11-08 00:37 | Emergency (ER) | payer MEDICARE, SELFPAY ==
[2024-11-08 00:42] VITALS: BP 140/60; PULSE 53; RESP 18; TEMP 36.7; O2SAT 96
[2024-11-08 01:02] VITALS: BP 125/55; PULSE 52; RESP 17; O2SAT 96
--- OUTSIDE RECORDS SUMMARY | 2024-11-08 01:14 | XMS_ITS | Clinical Summary ---
Author Organization [facility] Address [address] [place] [address] Phone Care Team Providers Care Bailing Machine Operator Name Role Phone Chacorta Bradley MD Primary Care Provider [phone] Allergies No known active allergies Medications topiramate (TOPAMAX) 25 MG tablet Take 25 mg by mouth every night Active aspirin (ST ELMER) 81 MG EC tablet Take 81 mg by mouth 1 (one) time each day Active amLODIPine (NORVASC) 2.5 MG tablet Take 2.5 mg by mouth every night Active losartan-hydroC HLOROthiazide (HYZAAR) 100-12.5 MG per tablet Take 1 tablet by mouth 1 (one) time each day Active metFORMIN (FORTAMET) 500 MG 24 hr tablet Take 1,000 mg by mouth 1 (one) time each day in the morning Active atorvastatin (LIPITOR) 10 MG tablet Take 10 mg by mouth 1 (one) time each day Active Multiple Vitamin (multivitamin) tablet Take 1 tablet by mouth 1 (one) time each day Active carbidopa-levod opa (SINEMET) 25-100 MG per tablet Take 3 [...] 10 mg by mouth every night Active Multiple Vitamins-Minera ls (EYE-VITES PO) Take by mouth 2 (two) times a day Active Active Problems Problem Noted Date Diagnosed [...] at Not on file Legal Sex Male 1:15 PM [facility] Gender Identity Not on file Sexual Orientation Not on file Last Filed Vital Signs Vital Sign Reading Time Taken Comments Blood Pressure 127/73 08/12/2024 1:05 PM CDT Pulse 50 08/12/2024 1:05 PM CDT Temperature - - Respiratory Rate - - Oxygen Saturation - - Inhaled Oxygen Concentration - - Weight 72.6 kg (160 lb) 08/12/2024 1:05 PM CDT Height 175.3 cm (5' 9) 08/12/2024 1:05 PM CDT Body Mass Index 23.63 08/12/2024 1:05 PM CDT Plan of Treatment Upcoming Encounters Date Type Department Care Team (Late st Contact Info) Description 08/11/2025 1:00 PM CDT Office Visit [facility] [address] [facility], [address] [place] [address] Smith Kilgore MD [address] [place] [address] Health Maintenance Due Date Last Done Comments Diabetic Foot Exam 09/26/1949 Ophthalmology Exam 09/26/1949 Pneumococcal PPSV23/PCV13 65 + Years / High and Highest Risk (1 of 5 - PCV) 09/26/1958 Influenza Vaccine (Season Ended) 2025 Insurance [facility] PM INTERFACED INSURANCE Care Teams Bailing Machine Operator Relationship Specialty Start Date End Date Chacorta Bradley MD [address] [facility] [address] [place] [address] PCP - General Internal Medicine 08/16/21
[2024-11-08] MEDS: LACTATED RINGERS 1,000 ML 999 ML IV CONT (01:53)
[2024-11-08] MEDS: BISMUTH SUBSALICYLATE 262 MG CHEWABLE TABLET 524 MG PO (01:54)
[2024-11-08] MEDS: LOPERAMIDE HCL 2 MG CAPSULE 4 MG PO (01:54)
[2024-11-08 02:31] VITALS: BP 146/56; PULSE 63; RESP 19
--- NOTE | 2024-11-08 02:43 | ED_ITS ---
HPI - Nausea/Vomiting/Diarrhea General Chief complaint: Nausea/Vomiting/Diarrhea Stated complaint: multiple episodes of diarrhea Time Seen by Provider: 11/08/24 00:41 History of Present Illness HPI Narrative: Around 8:00 p.m. arshad, and government affairs specialist of the patient noticed he was havi ng some loose stools, had a total of about 3 loose stools and they were concerned that he may become dehydrated so brought him in to the hospital. Patient denies any abdominal pain. Related Data Home Medications ?Medication ?Instructions ?Recorded ?Confirmed ?Last Taken ?Type aspirin 81 mg tablet,delayed 81 mg PO DAILY 06/12/19 06/27/24 Unknown History release multivitamin 1 tablet PO DAILY 06/12/19 06/27/24 Unknown History vit C 250 mg-vit E 90 mg-zinc 40 1 tablet PO BID 06/12/19 06/27/24 Unknown History mg-copper 1 hh-nwrrgr-ylumix capsule (PreserVision AREDS-2) carbidopa 25 mg-levodopa 100 mg 3 tablet PO TID 07/30/23 06/27/24 Unknown History tablet cholecalciferol (vitamin D3) 10 1,000 unit PO DAILY 07/30/23 06/27/24 Unknown History mcg (400 unit) capsule donepezil 10 mg tablet 10 mg PO DAILY 07/30/23 06/27/24 Unknown History memantine 10 mg tablet 10 mg PO DAILY 07/30/23 06/27/24 Unknown History topiramate 25 mg tablet 25 mg PO DAILY 07/30/23 06/27/24 Unknown History Allergies Allergy/AdvReac Type Severity Reaction Status Date / Time No Known Allergies Allergy Verified 06/13/24 10:55 Review of Systems Review of Systems: All systems reviewed & are unremarkable except as noted in HPI and below PMFSH Past Medical History Medical History CKD (chronic kidney disease), stage III 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 Dementia HLD (hyperlipidemia) HTN (hypertension), benign Type 2 diabetes mellitus without complications Surgical History Surgical History H/O prostate biopsy H/O cataract removal with insertion of prosthetic lens (~2021) left eye H/O cataract removal with insertion of prosthetic lens (~2017) right eye 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 Family History Family History Mother Parkinson disease Alzheimers disease Social History Social History Social History: Caffeine-none Smoking status: Never smoker Second hand tobacco smoke exposure: No Alcohol intake: never Substance use: never Substance use type: does not use Lack of Transportation: No Lack of Food: Never True Current Housing: I Have Housing Concerned About Future Housing: No Difficulty Paying Gas/Electric Bills: Decline to Answer Difficulty Paying for Meds: No Currently Unemployed: No Education: Master's Degree or Higher Difficulty w/ Childcare or Family Care: No Living arrangements: with family Occupation/Education: retired Gender identity (if verbalized by the patient): Male Agree to blood products: Yes Exam Narrative: EXAMINATION OF ORGAN SYSTEMS/BODY AREAS: Constitutional: Vital signs per nursing GENERAL:[No acute distress, non-toxic appearing.] HEAD: Normal with no signs of head trauma. EYES: EOMI, conjunctiva normal ENT: Hearing grossly intact LUNGS: Nonlabored breathing. HEART: [Regular rate and rhythm] ABD: [Soft], [nontender to palpation] RECTAL: Loose stools; brown EXT: Normal range of motion SKIN: [No rashes or lesions.] NEURO: [Alert and oriented x 3. No gross focal sensory or strength deficits.] PSYCH: Normal affect Course Vital Signs Vital signs: Vital Signs Temperature 98.0 F 11/08/24 00:42 Pulse Rate 53 L 11/08/24 00:42 Respiratory Rate 18 11/08/24 00:42 Blood Pressure 140/60 11/08/24 00:42 Pulse Oximetry 96 11/08/24 00:42 Oxygen Delivery Room Air 11/08/24 00:42 Temperature 98.0 F 11/08/24 00:42 Pulse Rate 53 L 11/08/24 00:42 Respiratory Rate 18 11/08/24 00:42 Blood Pressure 140/60 11/08/24 00:42 Pulse Oximetry 96 11/08/24 00:42 Oxygen Delivery Room Air 11/08/24 00:42 MDM - Nausea/Vomiting/Diarrhea MDM Narrative Medical decision making narrative: Patient presents here after having several episodes of loose stools at home, he is extremely well-appearing, no nausea or vomiting and no abdominal pain, abdomen soft and nontender. There was some loose stool in diaper but it is not dark or bloody Family was concerned about dehydration so I did give a dose of fluids, as well as some Imodium and Pepto-Bismol. On re-evaluation patient still in no distress. Normal vital signs. Family comfortable with taking him home with follow-up to his PCP if he persists in having diarrhea, and prescriptions for anti diarrhea medications provided, as well as instructions to make sure patient stays hydrated. Patient and family agreeable to plan with return precautions Discharge Plan Discharge Clinical Impression: Frequent loose stools Patient Disposition: Home Condition: Stable Instructions: Acute Diarrhea (ED) Additional Instructions: You can take the medications as prescribed, make sure that he is keeping hydrated. If he is still having a large number of loose stools he can follow-up with his primary care doctor. If he starts having nausea, vomiting, abdominal pain, or anything else concerning, you can bring him back to the hospital. Patient Language: Japanese Prescriptions: New loperamide [Imodium A-D] 2 mg capsule 4 mg PO Q6H PRN (Reason: loose stool) Qty: 14 0RF bismuth subsalicylate [Pepto-Bismol] 262 mg tablet,chewable 2 tablet PO Q4-6H PRN (Reason: diarrhea) Qty: 20 0RF Rx Instructions: do not exceed 16 tabs per 24 hrs No Action memantine 10 mg tablet 10 mg PO DAILY multivitamin Tablet 1 tablet PO DAILY PreserVision AREDS-2 [phone] te-gnko-kr-mg capsule 1 tablet PO BID Rx Instructions: administer with meals aspirin 81 mg tablet,delayed release (DR/EC) 81 mg PO DAILY carbidopa-levodopa 25-100 mg tablet 3 tablet PO TID cholecalciferol (vitamin D3) 10 mcg (400 unit) capsule 1,000 unit PO DAILY donepezil 10 mg tablet 10 mg PO DAILY topiramate 25 mg tablet 25 mg PO DAILY losartan-hydrochlorothiazide 100-12.5 mg tablet See Rx Instructions .ROUTE .COMPLEX Qty: 90 2RF Dose Instruction: TAKE 1 TABLET BY MOUTH DAILY Rx Instructions: TAKE 1 TABLET BY MOUTH DAILY metformin 500 mg tablet See Rx Instructions .ROUTE .COMPLEX Qty: 180 2RF Dose Instruction: TAKE 2 TABLETS BY MOUTH ONCE DAILY Rx Instructions: TAKE 2 TABLETS BY MOUTH ONCE DAILY atorvastatin 10 mg tablet See Rx Instructions .ROUTE .COMPLEX Qty: 90 2RF Dose Instruction: TAKE 1 TABLET BY MOUTH ONCE DAILY Rx Instructions: TAKE 1 TABLET BY MOUTH ONCE DAILY amlodipine 2.5 mg tablet See Rx Instructions .ROUTE .COMPLEX Qty: 90 2RF Dose Instruction: TAKE 1 TABLET BY MOUTH DAILY Rx Instructions: TAKE 1 TABLET BY MOUTH DAILY metoprolol succinate 50 mg tablet extended release 24 hr 50 mg PO BID Qty: 180 2RF Follow-up/Referrals: Chacorta Bradley MD [Primary Care Provider] - 2 Days
[2024-11-08 02:46] VITALS: BP 130/56; PULSE 63; RESP 19
[2024-11-08 03:01] VITALS: BP 153/65; PULSE 61; RESP 16
[2024-11-08 03:40] VITALS: PULSE 68
== END 2024-11-08 03:33 | disposition home or self-care (01) ==
PROVIDERS: Emergency Provider Emergency Medicine; PCP Family Medicine
DX: R19.7 Diarrhea, unspecified (principal); F03.90 Unspecified dementia, unspecified severity, without behavioral disturbance, psychotic disturbance, mood disturbance, and anxiety; I12.9 Hypertensive chronic kidney disease with stage 1 through stage 4 chronic kidney disease, or unspecified chronic kidney disease; E11.22 Type 2 diabetes mellitus with diabetic chronic kidney disease; N18.30 Chronic kidney disease, stage 3 unspecified; E78.5 Hyperlipidemia, unspecified; Z96.1 Presence of intraocular lens; Z98.42 Cataract extraction status, left eye; Z98.41 Cataract extraction status, right eye; Z96.653 Presence of artificial knee joint, bilateral; Z79.84 Long term (current) use of oral hypoglycemic drugs; Z79.899 Other long term (current) drug therapy
CPT/HCPCS: 96360; 99283; A9270; J7120

== ENCOUNTER 2024-12-11 09:45 | Outpatient (CLI) | payer MEDICARE, SELFPAY ==
--- OUTSIDE RECORDS SUMMARY | 2024-12-11 09:48 | XMS_ITS | Clinical Summary ---
Author Organization [facility] Address [address] [place] [id number] Phone Care Team Providers Care Secretary Receptionist Name Role Phone Chacorta Bradley MD Primary Care Provider [phone] Allergies No known active allergies Medications topiramate [...] on file Legal Sex Male 1:15 PM [facility] Gender Identity Not on file Sexual Orientation [...] Description 08/11/2025 1:00 PM CDT Office Visit [facility] [address] [facility], [address] [place], [place] [id number] Smith Kilgore MD [address] [place] [id number] Health Maintenance Due Date Last Done Comments Diabetic Foot Exam 09/26/1949 Ophthalmology Exam 09/26/1949 Pneumococcal PPSV23/PCV13 65 + Years / High and Highest Risk (1 of 5 - PCV) 09/26/1958 Influenza Vaccine (#1) 2025 Insurance [facility] INTERFACED INSURANCE Care Teams Secretary Receptionist Relationship Specialty Start Date End Date Chacorta Bradley MD [address] [place] [address] PCP - General Internal Medicine 08/16/21
[2024-12-11 10:22] LABS: Hematocrit 38.2 % (42.0-52.0); Hemoglobin 12.1 g/dL (14.0-18.0); Immature Granulocyte Percent A 0.5 % (0-0.5); Lymphocytes Absolute Auto 1.94 K/mm3 (0.9-3.2); Mean Corpuscular HGB Conc 31.7 g/dl (32-36); Mean Corpuscular Hemoglobin 32.1 pg (26-34); Mean Corpuscular Volume 101.3 fl (80-100); Nucleated Red Blood Cells Absolute Auto 0.000 K/mm3 (0.0-0.012); Nucleated Red Blood Cells Perc 0.0 % (0.0-0.2); Platelet Count Result 165 k/mm3 (150-375); Red Blood Count 3.77 M/mm3 (4.6-6.20); White Blood Count 7.8 K/mm3 (4.5-10.0)
[2024-12-11 10:45] LABS: Alanine Aminotransferase 10 U/L (6-50); Albumin Level 4.1 g/dL (3.5-5.1); Alkaline Phosphatase 81 U/L (38-126); Anion Gap 7 mmol/L (4-12); Aspartate Amino Transferase 36 U/L (17-59); Bilirubin,Total 0.6 mg/dL (0.2-1.3); Blood Urea Nitrogen 36 mg/dL (9-20); Calcium 9.3 mg/dL (8.4-10.2); Carbon Dioxide 30 mmol/L (22-30); Chloride 104 mmol/L (98-107); Cholesterol 158 mg/dL (0-200); Estimated Glomerular Filt Rate 43; Glucose 105 mg/dL (65-110); HDL Direct 43 mg/dL; Potassium 4.3 mmol/L (3.4-5.0); Sodium 141 mmol/L (137-145); Total Protein 6.7 g/dL (6.3-8.2); Triglycerides 136 mg/dL (<150)
[2024-12-11 11:13] LABS: Hemoglobin A1C 5.9 % (<5.7)
[2024-12-11 11:24] LABS: Thyroid Stimulating Hormone Reflex 1.020 uIU/mL (0.465-4.68)
== END 2024-12-11 09:46 | disposition home or self-care (01) ==
PROVIDERS: PCP Physician Assistant
DX: E78.5 Hyperlipidemia, unspecified (principal); E11.22 Type 2 diabetes mellitus with diabetic chronic kidney disease; N18.30 Chronic kidney disease, stage 3 unspecified
CPT/HCPCS: 36415; 80053; 80061; 83036; 84443; 85025